=== PATIENT | male | born 1940 | race Caucasian/White ===

== ENCOUNTER → 2016-08-18 | Outpatient (CLI) | payer MEDICARE, OTHER ==
[~2016-08-18] MED LIST: ALPR0.5T6 PO; ASPI-515 PO; ATOR40TA78 PO; CARV3.122 PO; CITA20TA9 PO; CYAN50006 PO; LOSA50TA2 PO; ROSU20TA PO; SILD10VI2 PO; TAMS0.4C2 PO; TICA90TA PO; vit d PO
== END | disposition home or self-care (01) ==
LOC: CFH 07:41
PROVIDERS: ATTEND Radiology Radiation Oncology
DX: C64.9 Malignant neoplasm of unspecified kidney, except renal pelvis (principal); K80.20 Calculus of gallbladder without cholecystitis without obstruction; N20.0 Calculus of kidney
CPT/HCPCS: 74176

== ENCOUNTER → 2016-10-02 | Outpatient (CLI) | payer MEDICARE, OTHER | END | disposition home or self-care (01) | LOC: CFH 08:43 | PROVIDERS: ATTEND Internal Medicine Cardiovascular Disease | DX: I08.0 Rheumatic disorders of both mitral and aortic valves (principal); I42.9 Cardiomyopathy, unspecified; I10 Essential (primary) hypertension; E78.5 Hyperlipidemia, unspecified; E11.9 Type 2 diabetes mellitus without complications; I25.10 Atherosclerotic heart disease of native coronary artery without angina pectoris; Z95.5 Presence of coronary angioplasty implant and graft; Z87.891 Personal history of nicotine dependence | CPT/HCPCS: 93306 ==

== ENCOUNTER → 2017-09-08 | Outpatient (CLI) | payer MEDICARE, OTHER | END | disposition home or self-care (01) | LOC: CFH 12:04 | PROVIDERS: ATTEND Radiology Radiation Oncology | DX: C64.9 Malignant neoplasm of unspecified kidney, except renal pelvis (principal); J84.10 Pulmonary fibrosis, unspecified; K80.20 Calculus of gallbladder without cholecystitis without obstruction | CPT/HCPCS: 74176 ==

== ENCOUNTER → 2019-03-17 | Outpatient (CLI) | payer MEDICARE, OTHER ==
[~2019-03-17] MED LIST changes: -ROSU20TA PO; +ROSU20TA2 PO
== END | disposition home or self-care (01) ==
LOC: CFH 14:00
PROVIDERS: ATTEND Radiology Radiation Oncology
DX: C64.9 Malignant neoplasm of unspecified kidney, except renal pelvis (principal); N26.1 Atrophy of kidney (terminal)
CPT/HCPCS: 74176

== ENCOUNTER → 2019-03-21 | Outpatient (CLI) | payer MEDICARE, OTHER | END | disposition home or self-care (01) | LOC: ROC 09:13 | PROVIDERS: ATTEND Radiology Radiation Oncology | DX: Z08 Encounter for follow-up examination after completed treatment for malignant neoplasm (principal); Z85.528 Personal history of other malignant neoplasm of kidney; C64.9 Malignant neoplasm of unspecified kidney, except renal pelvis | CPT/HCPCS: G0463 ==

== ENCOUNTER → 2019-04-01 | Outpatient (CLI) | payer MEDICARE, OTHER | END | disposition home or self-care (01) | LOC: CFH 10:43 | PROVIDERS: ATTEND Radiology Radiation Oncology | DX: C64.9 Malignant neoplasm of unspecified kidney, except renal pelvis (principal); I10 Essential (primary) hypertension; N40.0 Benign prostatic hyperplasia without lower urinary tract symptoms; N28.1 Cyst of kidney, acquired; Z85.528 Personal history of other malignant neoplasm of kidney | CPT/HCPCS: 76770 ==

== ENCOUNTER → 2019-10-24 | Outpatient (CLI) | payer MEDICARE, OTHER | END | disposition home or self-care (01) | LOC: ROC 14:04 | PROVIDERS: ATTEND Radiology Radiation Oncology | DX: C64.9 Malignant neoplasm of unspecified kidney, except renal pelvis (principal); I25.10 Atherosclerotic heart disease of native coronary artery without angina pectoris; M19.90 Unspecified osteoarthritis, unspecified site; N18.4 Chronic kidney disease, stage 4 (severe); Z79.899 Other long term (current) drug therapy | CPT/HCPCS: G0463 ==

== ENCOUNTER 2020-05-01 14:51 | Outpatient (CLI) | payer MEDICARE, OTHER ==
[~2020-05-01 14:51] MED LIST changes: -ALPR0.5T6 PO; +ALPR0.5T93 PO; -ASPI-515 PO; +ASPI-963 PO
== END 2020-05-01 23:59 | disposition home or self-care (01) ==
LOC: CFH 14:51
PROVIDERS: ATTEND Internal Medicine Cardiovascular Disease
DX: I08.0 Rheumatic disorders of both mitral and aortic valves (principal); I10 Essential (primary) hypertension; E78.5 Hyperlipidemia, unspecified; E11.9 Type 2 diabetes mellitus without complications; I25.10 Atherosclerotic heart disease of native coronary artery without angina pectoris; Z87.891 Personal history of nicotine dependence; Z95.818 Presence of other cardiac implants and grafts
CPT/HCPCS: 93306

== ENCOUNTER 2020-06-08 08:46 | Outpatient (CLI) | payer MEDICARE, OTHER ==
[2020-06-08] MEDS ORDERED: vitamin c PO (09:18)
[2020-06-08] MEDS ORDERED: ALLO100T30 PO (09:18)
[2020-06-08] MEDS ORDERED: LOSA25TA25 PO (09:18)
[2020-06-08] MEDS ORDERED: CYAN50003 PO (09:18)
[2020-06-08] MEDS ORDERED: CHOL10003 PO (09:18)
[2020-06-08 10:12] LABS: BASOPHILS % (AUTO) 1 % (0-1); EOSINOPHILS % (AUTO) 4 % (1-7); LYMPHOCYTES % (AUTO) 12 % (22-44); MEAN CORPUSCULAR HEMOGLOBIN 31.5 pg (27.5-34.5); MEAN CORPUSCULAR HGB CONC 33.1 g/dL (33.2-36.2); MEAN PLATELET VOLUME 8.3 fL (7.4-10.4); MONOCYTES % (AUTO) 15 % (2-9); NEUTROPHILS % (AUTO) 68 % (42-75); PLATELET COUNT 150 x10^3/uL (130-400); RED BLOOD COUNT 4.83 x10^6/uL (4.38-5.82); RED CELL DISTRIBUTION WIDTH 14.3 % (9.4-14.8)
[2020-06-08 10:14] LABS: MD NO
[2020-06-08 10:16] LABS: ALBUMIN 3.2 g/dL (3.4-5.0); ANION GAP 7 mmol/L (5-15); CALCIUM 8.4 mg/dL (8.5-10.1); CHLORIDE 111 mmol/L (98-107)
[2020-06-08 10:18] LABS: INTERNATIONAL NORMALIZED RATIO 1.1 (0.93-1.1); PROTHROMBIN TIME 11.8 Seconds (9.6-11.5)
[2020-06-08 10:19] LABS: ALANINE AMINOTRANSFERASE 19 U/L (12-78); ALKALINE PHOSPHATASE 73 U/L (45-117); BILIRUBIN,TOTAL 1.2 mg/dL (0.2-1.0); CREATININE 5.48 mg/dL (0.7-1.3); TOTAL PROTEIN 6.8 g/dL (6.4-8.2)
== END 2020-06-08 23:59 | disposition home or self-care (01) ==
LOC: STAR 08:46
PROVIDERS: ATTEND Surgery
DX: Z01.818 Encounter for other preprocedural examination (principal); J94.8 Other specified pleural conditions; J98.11 Atelectasis; Q79.1 Other congenital malformations of diaphragm; R94.31 Abnormal electrocardiogram [ECG] [EKG]
CPT/HCPCS: 36415; 71046; 80053; 85025; 85610; 85730; 93005; U0003

== ENCOUNTER 2020-06-14 10:26 | Day surgery (SDC) | payer MEDICARE, OTHER ==
[~2020-06-14] VITALS: Ht 182.9 cm; Wt 98.6 kg
[~2020-06-14 10:26] MED LIST changes: +ALLO100T30 PO; +CHOL10003 PO; +CYAN50003 PO; +LOSA25TA25 PO; +vitamin c PO
[2020-06-14 10:39] VITALS: BP 144/94
[2020-06-14] MEDS ORDERED: CHLORHEXIDINE 15 ML UDC ONE (10:45)
[2020-06-14] MEDS ORDERED: CHLORHEXIDINE 15 ML UDC PO ONE (11:00)
[2020-06-14] MEDS ORDERED: LACTATED RINGERS 1,000 ML IV SCH (11:00)
[2020-06-14 11:22] LABS: CALCIUM 8.5 mg/dL (8.5-10.1)
[2020-06-14 12:11] LABS: ANION GAP 8 mmol/L (5-15); CHLORIDE 113 mmol/L (98-107); CREATININE 5.67 mg/dL (0.7-1.3)
[2020-06-14] MEDS ORDERED: FENTANYL PF 250 MCG/5ML ONE (13:06)
[2020-06-14] MEDS ORDERED: HEPARIN 5,000 UNITS/ML, 1ML ONE (13:35)
[2020-06-14] MEDS ORDERED: BUPIVACAINE/PF 0.5% ONE (13:35)
[2020-06-14] MEDS ORDERED: EPINEPHRINE 1 MG/ML, 1ML ONE (13:36)
[2020-06-14] MEDS ORDERED: PAPAVERINE 30 MG/ML, 2ML ONE (13:36)
[2020-06-14] MEDS ORDERED: HEPARIN 1,000 UNITS/ML, 10ML ONE (14:11)
[2020-06-14] MEDS ORDERED: HEPARIN 5,000 UNITS/ML, 1ML SQ ONE (14:13)
[2020-06-14] MEDS ORDERED: BUPIVACAINE/PF 0.5% INFIL ONE (14:46)
[2020-06-14] MEDS ORDERED: ROCURONIUM 10MG/ML,5ML ONE (14:52)
[2020-06-14] MEDS ORDERED: SUCCINYLCHOLINE 20 MG/ML, 10ML ONE (14:52)
[2020-06-14] MEDS ORDERED: DEXAMETHASONE 4 MG/ML, 1ML ONE (14:52)
[2020-06-14] MEDS ORDERED: PROPOFOL 10 MG/ML, 20ML ONE (14:52)
[2020-06-14] MEDS ORDERED: GLYCOPYRROLATE 0.2MG/1ML, 5ML ONE (14:52)
[2020-06-14] MEDS ORDERED: ONDANSETRON 2MG/ML, 2ML ONE (14:52)
[2020-06-14] MEDS ORDERED: NEOSTIGMINE 1 MG/ML, 10ML ONE (14:52)
[2020-06-14] MEDS ORDERED: CEFAZOLIN 1,000 MG ONE (14:52)
[2020-06-14] MEDS ORDERED: SUGAMMADEX 200 MG/2 ML IVPush ONE (14:52)
== END 2020-06-14 16:35 | disposition home or self-care (01) ==
LOC: OUT 10:26
PROVIDERS: ATTEND Surgery
DX: I12.0 Hypertensive chronic kidney disease with stage 5 chronic kidney disease or end stage renal disease (principal); N18.5 Chronic kidney disease, stage 5; I25.10 Atherosclerotic heart disease of native coronary artery without angina pectoris; Z98.890 Other specified postprocedural states; Z87.891 Personal history of nicotine dependence; Z72.89 Other problems related to lifestyle; Z79.82 Long term (current) use of aspirin; Z79.899 Other long term (current) drug therapy
CPT/HCPCS: 36415; 36821; 80048; J0690; J1644; J2405; J2704; J2710; J3010; J7120; J0171; J1100; J0330; J2440

== ENCOUNTER → 2020-10-03 | Outpatient (CLI) | payer MEDICARE, OTHER | END | disposition home or self-care (01) | LOC: CFH 12:01 | PROVIDERS: ATTEND Radiology Radiation Oncology | DX: C64.9 Malignant neoplasm of unspecified kidney, except renal pelvis (principal); I10 Essential (primary) hypertension; Z90.49 Acquired absence of other specified parts of digestive tract | CPT/HCPCS: 74176 ==

== ENCOUNTER 2020-10-04 09:03 | Outpatient (CLI) | payer MEDICARE, OTHER | END 2020-10-04 23:59 | disposition home or self-care (01) | LOC: ROC 09:03 | PROVIDERS: ATTEND Radiology Radiation Oncology | DX: Z08 Encounter for follow-up examination after completed treatment for malignant neoplasm (principal); Z85.53 Personal history of malignant neoplasm of renal pelvis; C64.9 Malignant neoplasm of unspecified kidney, except renal pelvis; I10 Essential (primary) hypertension | CPT/HCPCS: G2251 ==